=== PATIENT | female | born 1995 | race Native Hawaiian/Other Pacific Islander ===

== ENCOUNTER 2019-04-22 16:32 | Outpatient (CLI) | payer OTHER ==
[2019-04-22 17:01] LABS: PLATELET COUNT 352 K/uL (152-353)
[2019-04-22 17:25] LABS: POTASSIUM 3.7 mmol/L (3.6-5.2)
== END 2019-04-22 19:03 | disposition home or self-care (01) ==
LOC: LABW 16:32
PROVIDERS: Family Medicine
DX: R53.83 Other fatigue (principal); E53.8 Deficiency of other specified B group vitamins; Z68.41 Body mass index [BMI] 40.0-44.9, adult; E55.9 Vitamin D deficiency, unspecified
CPT/HCPCS: 36415; 80053; 80061; 82306; 82607; 84436; 84443; 85027

== ENCOUNTER 2019-06-26 17:33 | Outpatient (CLI) | payer OTHER | END 2019-06-26 22:30 | disposition home or self-care (01) | LOC: RAD 17:33 | DX: S99.912A Unspecified injury of left ankle, initial encounter (principal) ==

== ENCOUNTER 2019-10-29 16:31 | Outpatient (CLI) | payer OTHER | END 2019-10-29 22:25 | disposition home or self-care (01) | LOC: RAD 16:31 | DX: J20.9 Acute bronchitis, unspecified (principal) ==

== ENCOUNTER 2020-04-26 12:09 | Outpatient (CLI) | payer OTHER ==
[2020-04-26 13:02] LABS: PLATELET COUNT 293 K/uL (152-353)
[2020-04-26 13:12] LABS: POTASSIUM 3.8 mmol/L (3.6-5.2)
== END 2020-04-26 19:09 | disposition home or self-care (01) ==
LOC: LABW 12:09
PROVIDERS: Nurse Practitioner Family
DX: R60.0 Localized edema (principal); E78.5 Hyperlipidemia, unspecified; R53.83 Other fatigue; E55.9 Vitamin D deficiency, unspecified
CPT/HCPCS: 36415; 80053; 80061; 82306; 82607; 83880; 84439; 84443; 85027